=== PATIENT | male | born 1955 | race Caucasian/White ===

== ENCOUNTER 2016-11-04 13:20 | Emergency (ER) | payer OTHER ==
[2016-11-04] MEDS ORDERED: HYDROmorphone 0.5 MG/0.5 ML Syringe IVPUSH ONE ×2 (13:49→17:48)
[2016-11-04] MEDS ORDERED: Ondansetron 4 MG/2 ML SDV IVPUSH ONE (13:49)
[2016-11-04] MEDS ORDERED: Tamsulosin 0.4 MG Cap.ER PO ONE (13:49)
[2016-11-04] MEDS ORDERED: Sodium Chloride 0.9% 1,000 ML IV SCH (14:00)
[2016-11-04] MEDS ORDERED: Iopamidol 755 Mg/ML 100 ML Bottle IVPUSH ONE (16:57)
[2016-11-04] MEDS ORDERED: Diatrizoate Meglumine/Diatrizoate Sodium 37% 120 ML Bottle PO ONE (16:57)
[2016-11-04] MEDS ORDERED: Sodium Chloride 0.9% 10 ML Syringe FLUSH PRN (16:57)
--- NOTE | 2016-11-04 17:44 | CT ---
CT abdomen and pelvis Technique: Multiple axial images were obtained from above the dome of the diaphragm inferiorly through the pubic symphysis. Intravenous and oral contrast has been given. Delayed images were also obtained through the bladder. Comparison: Previous CT abdomen and pelvis study of 10/27/11 is available. Findings: Left adrenal mass is seen. This finding has maximum measurements of around 2.4 cm. This finding is seen on prior study but has increased in size by about 3 mm. Given that previous study was from 5 years ago this is most likely due to slightly growing adrenal adenoma. Right adrenal gland is unremarkable. Visualized lung bases shows nothing acute. Liver shows no focal parenchymal abnormality. Multiple small gallstones are seen within the gallbladder. These gallstones are also identified on prior exam. Spleen size is normal. Pancreas is within normal limits. Left sided hydronephrosis is seen. This finding is caused by a left obstructing ureteral stone located at the UPJ. This obstructing stone measures 7 mm in size. No other abnormal calcifications are seen along the course of the ureters. No abnormal calcifications are seen within the kidneys. Delayed images shows contrast within the distal right ureter. No contrast is seen within the distal left ureter. Aorta shows mild atherosclerotic change without aneurysmal dilatation. No retroperitoneal adenopathy or mesenteric abnormalities are seen. Appendix is seen which appears within normal limits. No free fluid is seen. Slight calcifications are noted within the prostate gland. No bowel dilatation is seen. Bone window settings were reviewed showing mild degenerative change scattered within the spine with mild scoliosis. Impression: 1. Left-sided hydronephrosis caused by a 7 mm obstructing ureteral stone located within the left UPJ. 2. Slightly increasing size of left adrenal mass by about 3 mm from previous exam performed 5 years earlier. This finding is most likely due to slight increasing size of benign adrenal adenoma. 3. Multiple small gallstones which were seen on previous exam. 4. Other incidental findings as noted above. Diagnostic code #3
--- NOTE | 2016-11-04 18:32 | EDM.PDOC ---
ED HPI RENAL/ - General Chief Complaint: Flank Pain Stated Complaint: ABDOMINAL PAIN Time Seen by Provider: 11/04/16 13:39 Source of Information: Reports: Patient, Family (), RN notes reviewed History Limitations: Reports: No limitations - History of Present Illness INITIAL COMMENTS - FREE TEXT/NARRATIVE: The patient states that he developed left flank around 04:30 to 05:00 this morning, after he had gone to the bathroom. The pain radiates to his left groin if he lays on his left side. He has had nausea, and he vomited 3 times. He states that he felt hot, although is afebrile here in the ED. He denies having any urinary symptoms, including dysuria or gross hematuria, but also states that he has not had any urine output since he went to the bathroom this morning. He states that he had similar symptoms in 2011 and was found to have a kidney stone, requiring lithotripsy. He also had similar symptoms around 1996. The patient's PCP is Dr. Trimble. He does not currently have a Urologist. - Related Data Allergies/ADRs: Allergies Allergy/AdvReac Type Severity Reaction Status Date / Time No Known Allergies Allergy Verified 11/04/16 13:34 Home Meds: Home Meds Losartan [Cozaar] 100 mg PO DAILY 02/02/16 [History] Pravastatin [Pravachol] 40 mg PO DAILY 02/02/16 [History] Hydrocodone/Acetaminophen [[place] 5-325 Tablet] 1 - 2 each PO Q6H PRN #30 tablet 11/04/16 [Rx] Ondansetron [Zofran ODT] 1 tab PO Q8H PRN #10 tab.dis 11/04/16 [Rx] Pantoprazole [ProTONIX] 40 mg PO ACBREAKFAST 11/04/16 [History] Tamsulosin HCl [Flomax] 1 tab PO DAILY PRN #5 cap.er.24h 11/04/16 [Rx] Past Medical History HEENT History: Reports: Hard of hearing Cardiovascular History: Reports: High cholesterol, Hypertension Gastrointestinal History: Reports: GERD, Hiatal hernia Genitourinary History: Reports: Renal calculus - Infectious Disease History Infectious Disease History: Reports: Chicken pox, Measles, Mumps - Past Surgical History Male Surgical History: Reports: Lithotripsy ([facility]) Musculoskeletal Surgical History: Reports: Other (see below) (Left knee open surgery) Social & Family History - Family History HEENT: Reports: Cataract, Glaucoma Other HEENT Family History: father and mother Cardiac: Reports: CT : Reports: Renal calculus Neurological: Reports: CVA, TIA Other Neurological Family History: brother/mother Oncologic: Reports: Skin, Thyroid Other Oncologic Family History: Father - Tobacco Use Smoking Status *Q: Former Smoker Tobacco Use Within Last Twelve Months: No Years of Tobacco use: 13 Packs/Tins Daily: 1 Used Tobacco, but Quit: Yes Month Tobacco Last Used: 1987 Second Hand Smoke Exposure: No - Caffeine Use Caffeine Use: Reports: Coffee - Alcohol Use Alcohol Use History: Yes Days Per Week of Alcohol Use: 1 Number of Drinks Per Day: 1 Total Drinks Per Week: 1 Alcohol Use Frequency: Socially - Recreational Drug Use Recreational Drug Use: No - Living Situation & Occupation Living situation: Reports: , with spouse, with family (Son) Occupation: employed (Chemical services molding process technician) ED ROS GENERAL - Review of Systems Review Of Systems: See Below Constitutional: Reports: no symptoms HEENT: Reports: No symptoms Respiratory: Reports: No Symptoms Cardiovascular: Reports: No symptoms Endocrine: Reports: no symptoms GI/Abdominal: Reports: No symptoms : Reports: no symptoms Musculoskeletal: Reports: no symptoms Skin: Reports: no symptoms Neurological: Reports: No Symptoms Psychiatric: Reports: No symptoms Hematologic/Lymphatic: Reports: no symptoms Immunologic: Reports: no symptoms ED EXAM, RENAL/ - Physical Exam Exam: See Below Exam Limited By: No limitations General Appearance: alert, WD/WN, mild distress Eye Exam: bilateral eye: EOMI, normal inspection Ears: normal external exam, hearing loss Nose: normal inspection, no blood Throat/Mouth: Normal inspection, Normal lips, Normal voice, No airway compromise Head: atraumatic, normocephalic Neck: normal inspection, full range of motion Respiratory/Chest: no respiratory distress, lungs clear, normal breath sounds, no accessory muscle use Cardiovascular: normal peripheral pulses, regular rate, rhythm, no gallop, no JVD, no murmur, no rub GI/Abdominal: normal bowel sounds, soft, non tender, no organomegaly, no distention, no abnormal bruit, no mass (Male) Exam: Deferred Rectal (Males) Exam: Deferred Back Exam: normal inspection, full range of motion, CVA tenderness (L) (minimal) . No: CVA tenderness (R) Extremities: normal inspection, normal range of motion, no pedal edema, normal capillary refill Neurological: alert, oriented, normal cognition, no motor/sensory deficits Psychiatric: normal affect Skin Exam: Warm, Dry, Intact, Normal color, No rash Lymphatic: no adenopathy Course - Vital Signs Last Recorded V/S: Last Vital Signs Temp 37.3 C 11/04/16 19:08 Pulse 78 11/04/16 19:08 Resp 18 11/04/16 19:08 BP 172/93 H 11/04/16 19:08 Pulse Ox 97 11/04/16 19:08 - Orders/Labs/Meds Labs: Laboratory Tests 11/04/16 11/04/16 11/04/16 Range/Units 14:02 14:02 14:25 WBC 15.23 H (4.23-9.07) K/mm3 RBC 4.86 (4.63-6.08) M/mm3 Hgb 14.7 (13.7-17.5) gm/L Hct 41.2 (40.1-51.0) % MCV 84.8 (79.0-92.2) fl MCH 30.2 (25.7-32.2) pg MCHC 35.7 H (32.2-35.5) g/dl RDW Std Deviation 38.2 (35.1-43.9) fL Plt Count 255 (163-337) K/mm3 MPV 10.8 (9.4-12.3) fl Neutrophils % (Manual) 85 H (40-60) % Band Neutrophils % 0 (0-10) % Lymphocytes % (Manual) 12 L (20-40) % Atypical Lymphs % 0 % Monocytes % (Manual) 1 L (2-10) % Eosinophils % (Manual) 0 L (0.8-7.0) % Basophils % (Manual) 2 H (0.2-1.2) Platelet Estimate Adequate Plt Morphology Comment Normal RBC Morph Comment Normal Sodium 141 (136-145) mEq/L Potassium 4.8 (3.5-5.1) mEq/L Chloride 107 (98-107) mEq/L Carbon Dioxide 25 (21-32) mEq/L Anion Gap 13.8 (5-15) BUN 20 H (7-18) mg/dL Creatinine 1.7 H (0.7-1.3) mg/dL Est Cr Clr Drug Dosing 47.71 mL/min Estimated GFR (MDRD) 41 (>60) mL/min BUN/Creatinine Ratio 11.8 L (14-18) Glucose 126 H (74-106) mg/dL Calcium 10.1 (8.5-10.1) mg/dL Total Bilirubin 0.6 (0.2-1.0) mg/dL AST 25 (15-37) U/L ALT 49 (16-63) U/L Alkaline Phosphatase 67 (46-116) U/L Total Protein 7.1 (6.4-8.2) g/dl Albumin 4.0 (3.4-5.0) g/dl Globulin 3.1 gm/dL Albumin/Globulin Ratio 1.3 (1-2) Lipase 105 (73-393) U/L Urine Color Dark yellow (Yellow) Urine Appearance Clear (Clear) Urine pH 6.0 (5.0-8.0) Ur Specific [place] > or = 1.030 (1.005-1.030) Urine Protein 1+ H (Negative) Urine Glucose (UA) Negative (Negative) Urine Ketones Trace H (Negative) Urine Occult Blood Negative (Negative) Urine Nitrite Negative (Negative) Urine Bilirubin 1+ H (Negative) Urine Urobilinogen 1.0 (0.2-1.0) Ur Leukocyte Esterase Negative (Negative) Urine RBC 0-5 (0-5) /hpf Urine WBC 0-5 (0-5) /hpf Ur Epithelial Cells Not Reportable Ur Squamous Epith Cells 0-5 (0-5) /hpf Calcium Oxalate Crystal Moderate H (NONE) Urine Bacteria Occasional (FEW) /hpf Urine Mucus Moderate H (FEW) /hpf Meds: Medications Discontinued Medications Generic Name Dose Route Start Last Admin Trade Name Freq PRN Reason Stop Dose Admin Diatrizoate Meglum/Diatrizoate Sod 90 ml 11/04/16 16:57 11/04/16 17:18 Gastrografin 37% PO 11/04/16 16:58 90 ml ONETIME ONE Administration Hydromorphone HCl 0.5 mg 11/04/16 13:49 11/04/16 14:45 Dilaudid IVPUSH 11/04/16 13:50 0.5 mg ONETIME ONE Administration Hydromorphone HCl 0.5 mg 11/04/16 17:48 11/04/16 18:09 Dilaudid IVPUSH 11/04/16 17:49 0.5 mg ONETIME ONE Administration Sodium Chloride 1,000 mls @ 150 mls/hr 11/04/16 14:00 11/04/16 14:41 Normal Saline IV 150 mls/hr ASDIRECTED STACEY Administration Iopamidol 100 ml 11/04/16 16:57 11/04/16 17:18 [id number] (76%) IVPUSH 11/04/16 16:58 100 ml ONETIME ONE Administration Ondansetron HCl 4 mg 11/04/16 13:49 11/04/16 14:42 Zofran IVPUSH 11/04/16 13:50 4 mg ONETIME ONE Administration Sodium Chloride 10 ml 11/04/16 16:57 11/04/16 17:18 Saline Flush FLUSH 10 ml ONETIME PRN Administration Keep Vein Open Tamsulosin HCl 0.4 mg 11/04/16 13:49 11/04/16 15:00 Flomax PO 11/04/16 13:50 0.4 mg ONETIME ONE Administration - Radiology Interpretation Free Text/Narrative:: CT of the abdomen and pelvis with oral and IV contrast is read by Dr. Redd as: 1. Left-sided hydronephrosis caused by a 7 mm obstructing ureteral stone located within the left UPJ. 2. Slightly increasing in size of left adrenal mass by about 3 mm from previous exam performed 5 years earlier. This finding is most likely due to slight increasing size of benign adrenal adenoma. 3. Multiple small gallstones which were seen on previous exam. 4. Other incidental findings as noted above. - Re-Assessments/Exams Free Text/Narrative Re-Assessment/Exam: 11/04/16 18:32 Test results discussed with the patient and his . The patient has a 7 mm stone at the left UPJ. This is an unusual presentation, as there was no blood in his urine. Options were discussed, including transfer to [place] for urologic intervention , vs. going home and following up with a Urologist as an outpatient. The patient prefers the latter. I will e-prescribe Commerce, Zofran, and Flomax. He will be sent home with a urine strainer. I will refer him to Dr. Martin. Departure - Departure Time of Disposition: 18:35 Disposition: Home, Self-Care 01 Condition: fair Clinical Impression: Ureterolithiasis, Acute kidney injury Prescriptions: Hydrocodone/Acetaminophen [[place] 5-325 Tablet] 1 - 2 each PO Q6H PRN #30 tablet PRN Reason: Pain (Severe 7-10) Ondansetron [Zofran ODT] 1 tab PO Q8H PRN #10 tab.dis PRN Reason: Nausea/Vomiting Tamsulosin HCl [Flomax] 1 tab PO DAILY PRN #5 cap.er.24h PRN Reason: Spasms Instructions: Acute Kidney Injury, Kidney Stones, [id number] Referrals: Ulises Martin MD [Physician] - Forms: ED Department Discharge Additional Instructions: You were seen in the emergency room for left flank pain. Workup in the ER included blood work, a urinalysis, and a CT scan of your abdomen and pelvis. Your workup shows that you have a 7 mm stone at the left ureteropelvic junction. You will not likely pass the stone on your own. You will need urologic intervention. You may take 2-3 tablets of [id number] ibuprofen up to every 8 hours, with food, as needed for pain. Take 1 to 2 tablets of the pain medicine Commerce up to every 6 hours, as needed for pain not relieved by ibuprofen. If you take Commerce, do not drive or operate heavy machinery for 12 hours afterwards. Commerce will likely cause constipation, so consider taking a stool softener. Dissolve one tablet of the anti-nausea medicine Zofran on your tongue up to every 8 hours, as needed for nausea/vomiting. Take one tablet of the anti-spasm medicine Flomax daily, starting tomorrow, 11/05. Stay adequately hydrated. Strain all of your urine. If you capture a stone, take it to your doctor for analysis. Followup with the Urologist Dr. Martin at the next available appointment. If any other problems, please do not hesitate to return to the ER.
[2016-11-04 19:10] VITALS: BP 172/93
== END 2016-11-04 19:10 | disposition home or self-care (01) ==
LOC: JD.ED 13:20
DX: N13.2 Hydronephrosis with renal and ureteral calculous obstruction (principal); Z87.442 Personal history of urinary calculi; K80.80 Other cholelithiasis without obstruction; I10 Essential (primary) hypertension; E78.00 Pure hypercholesterolemia, unspecified; K21.9 Gastro-esophageal reflux disease without esophagitis; K44.9 Diaphragmatic hernia without obstruction or gangrene; Z79.899 Other long term (current) drug therapy; Z87.891 Personal history of nicotine dependence
CPT/HCPCS: 36415; 74177; 80053; 81001; 83690; 85025; 96361; 96374; 96375; 96376; 99284; A9270; J1170; J2405; J7040; J7050; Q9963; Q9967